=== PATIENT | male | born 1965 ===

== ENCOUNTER 2017-10-05 16:27 | Emergency (ER) | payer OTHER ==
[~2017-10-05] VITALS: Ht 162.6 cm; Wt 99.8 kg
[~2017-10-05 16:27] MED LIST: ATOR80 PO; ESCI20 PO; HYDHCL25 PO; Inderal 20 mg T20 MG PO; Prilosec Otc20 MG PO
[2017-10-05] MEDS ORDERED: Norco 5-325 Ta1 EACH PO (18:01)
[2017-10-05] MEDS ORDERED: CRUTCH2 XX (18:01)
== END 2017-10-05 18:15 | disposition home or self-care (01) ==
LOC: ER 16:27
DX: S82.851A Displaced trimalleolar fracture of right lower leg, initial encounter for closed fracture (principal); Z79.899 Other long term (current) drug therapy; Z90.89 Acquired absence of other organs; W01.0XXA Fall on same level from slipping, tripping and stumbling without subsequent striking against object, initial encounter
CPT/HCPCS: 29515; 73610; 99283

== ENCOUNTER 2017-10-16 09:41 | Day surgery (SDC) | payer OTHER ==
[~2017-10-16] VITALS: Ht 162.6 cm; Wt 104.3 kg
[~2017-10-16 09:41] MED LIST changes: +CRUTCH2 XX; +Norco 5-325 Ta1 EACH PO
== END 2017-10-16 15:30 | disposition home or self-care (01) ==
LOC: ORSCSDS 09:41
PROVIDERS: Orthopaedic Surgery
PROC: 0QSJ04Z Reposition Right Fibula with Internal Fixation Device, Open Approach (ICD-10-PCS; principal; 2017-10-16 11:00)
PROC: 0QSG04Z Reposition Right Tibia with Internal Fixation Device, Open Approach (ICD-10-PCS; principal; 2017-10-16 11:00)
DX: S82.851A Displaced trimalleolar fracture of right lower leg, initial encounter for closed fracture (principal); S93.431A Sprain of tibiofibular ligament of right ankle, initial encounter; I10 Essential (primary) hypertension; G47.33 Obstructive sleep apnea (adult) (pediatric); K21.9 Gastro-esophageal reflux disease without esophagitis; E66.01 Morbid (severe) obesity due to excess calories; Z68.39 Body mass index [BMI] 39.0-39.9, adult; Z79.899 Other long term (current) drug therapy
CPT/HCPCS: C1713; C1769; J0690; J1100; J1885; J2250; J2405; J3010; J7120

== ENCOUNTER 2021-07-14 12:14 | Emergency (ER) | payer BC ==
[~2021-07-14] VITALS: Ht 162.6 cm; Wt 104.3 kg
[2021-07-14] MEDS ORDERED: Norco 5-325 Ta1 EACH PO (13:55)
== END 2021-07-14 14:06 | disposition home or self-care (01) ==
LOC: ER 12:14
DX: H04.121 Dry eye syndrome of right lacrimal gland (principal)
CPT/HCPCS: 99283; A9270